=== PATIENT | female | born 1990 | race Caucasian/White ===

== ENCOUNTER 2018-06-06 04:07 | Emergency (ER) | payer OTHER ==
[~2018-06-06] VITALS: Wt 54.4 kg
[~2018-06-06 04:07] MED LIST: AMOXICILLI400 MG/51 PO; AMOXICILLIN500 M2 PO; AMOXICILLIN500 MG PO; BACTRIM DS 8001 TA1 PO; CIPRO500 MG PO; DIFLUCAN150 MG PO; FLAGYL250 MG PO; FLONASE 0.05% 121 EA NAS; FLUCONAZOLE100 MG PO; FLUTICASON0.05 MG/AC NAS; KEFLEX500 MG PO; MACROBID100 M1 PO; MOTRIN CHI100 MG/51 PO; MOTRIN600 MG PO; MOTRIN800 MG PO; Miralax Powder255 GM PO; NAPROSYN500 MG PO; NKHM; NYSTATIN100000 U/M PO; OMEPRAZOLE40 MG PO; PREDNISONE20 M1 PO; PROCTOCREAM-HC2.5% TP; PSEUDOEPHEDRINE30 MG PO; ROBITUSSIN AC 110 ML PO; ROBITUSSIN DM 105 ML PO; TESSALON PERLE100 MG PO; VICODIN 5/500 505 MG PO; ZITHROMAX Z PA250 MG PO; ZITHROMAX250 MG PO; ZYRTEC10 M2 PO
== END 2018-06-06 06:00 | disposition home or self-care (01) ==
LOC: ED 04:07
DX: S93.402A Sprain of unspecified ligament of left ankle, initial encounter (principal); F17.200 Nicotine dependence, unspecified, uncomplicated; W19.XXXA Unspecified fall, initial encounter; Y93.89 Activity, other specified; Y92.89 Other specified places as the place of occurrence of the external cause; Y99.8 Other external cause status

== ENCOUNTER → 2019-06-22 | Outpatient (CLI) | payer OTHER | END | disposition home or self-care (01) | LOC: US 15:00 | DX: N85.2 Hypertrophy of uterus (principal) ==